=== PATIENT | female | born 1955 ===

== ENCOUNTER 2019-01-01 09:56 | Outpatient (CLI) | payer OTHER | END 2019-01-01 13:01 | disposition home or self-care (01) | LOC: SONOGRAMA 09:56 | DX: E04.1 Nontoxic single thyroid nodule (principal) ==

== ENCOUNTER 2019-10-29 09:01 | Outpatient (CLI) | payer OTHER | END 2019-10-29 09:05 | disposition home or self-care (01) | LOC: SONOGRAMA 09:01 | DX: E04.1 Nontoxic single thyroid nodule (principal) ==

== ENCOUNTER 2024-12-10 09:18 | Outpatient (CLI) | payer OTHER | END 2024-12-10 09:19 | disposition home or self-care (01) | LOC: SONOGRAMA 09:18 | PROVIDERS: ATTEND Pathology Anatomic Pathology & Clinical Pathology | DX: D34 Benign neoplasm of thyroid gland (principal); E06.3 Autoimmune thyroiditis; E04.2 Nontoxic multinodular goiter ==